=== PATIENT | female | born 1985 | race Caucasian/White ===

== ENCOUNTER → 2022-11-01 | Outpatient (CLI) | payer OTHER ==
[2022-11-03 11:11] LABS: HPV 16 Negative (Negative); HPV 18 Negative (Negative); HPV OTHER HR TYPES Negative (Negative)
== END | disposition home or self-care (01) ==
LOC: LAB SHORT 11:52 → LAB 11:52
PROVIDERS: Obstetrics & Gynecology
DX: Z01.419 Encounter for gynecological examination (general) (routine) without abnormal findings (principal)
CPT/HCPCS: 87624; G0145

== ENCOUNTER → 2023-02-09 | Outpatient (CLI) | payer OTHER ==
[2023-02-13 20:11] LABS: COTININE <10.0 ng/mL (.); NICOTINE <10.0 ng/mL (.)
== END ==
LOC: LAB SHORT 13:53 → LAB 13:53
PROVIDERS: Obstetrics & Gynecology
DX: Z51.81 Encounter for therapeutic drug level monitoring (principal); F17.201 Nicotine dependence, unspecified, in remission
CPT/HCPCS: G0480

== ENCOUNTER → 2023-10-08 | Outpatient (CLI) | payer OTHER | LOC: LAB 14:05 → LAB SHORT 14:05 | DX: N12 Tubulo-interstitial nephritis, not specified as acute or chronic (principal) | CPT/HCPCS: 87077; 87086; 87186 ==